=== PATIENT | male | born 1950 | race Caucasian/White ===

== ENCOUNTER 2020-01-01 15:29 | Emergency (ER) | payer OTHER ==
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
== END 2020-01-01 17:45 | disposition home or self-care (01) ==
LOC: NAV ERS 15:29
DX: S16.1XXA Strain of muscle, fascia and tendon at neck level, initial encounter (principal); S00.03XA Contusion of scalp, initial encounter; S00.531A Contusion of lip, initial encounter; S00.83XA Contusion of other part of head, initial encounter; I10 Essential (primary) hypertension; Y04.0XXA Assault by unarmed brawl or fight, initial encounter
CPT/HCPCS: 70450; 72125